=== PATIENT | male | born 1945 | race Caucasian/White ===

== ENCOUNTER 2021-01-24 16:30 | Inpatient (IN) | payer MEDICARE, OTHER ==
[~2021-01-24] VITALS: Ht 170.2 cm; Wt 85.7 kg
--- NOTE | 2021-01-24 16:42 | NUR ---
[id number] FROM CARE HOME C/O SOB X1WEEK, 96% ROOM AIR UPON ARRIVAL, GIVEN BREATHING TREATMENT CIVIL STRUCTURAL ENGINEER. THE PATIENT IS ALERT AND ORIENTED X3. DENIES PAIN. RESPIRATION REGULAR AND UNLABORED. ATTACHED TO THE MONITOR. WARM BLANKET PROVIDED FOR COMFORT. WILL CONTINUE TO MONITOR THE PATIENT.
--- NOTE | 2021-01-24 16:45 | NUR ---
LAB AT BEDSIDE FOR BLOOD DRAW
--- NOTE | 2021-01-24 16:45 | NUR ---
PHLEBATOMIST AT THE BEDSIDE
[2021-01-24 16:56] LABS: BASOPHILS % (AUTO) 0.8 % (0.0-2.0); EOSINOPHILS % (AUTO) 3.3 % (0.0-6.0); HEMATOCRIT 39 % (39-51); HEMOGLOBIN 13.3 g/dL (13.5-17.5); LYMPHOCYTES # (AUTO) 1.4 K/uL (0.8-4.8); LYMPHOCYTES % (AUTO) 26.3 % (20.0-44.0); MEAN CORPUSCULAR HGB CONC 34 g/dl (31.0-36.0); MEAN CORPUSCULAR VOLUME 93 fL (80-96); MONOCYTES # (AUTO) 0.6 K/uL (0.1-1.30); MONOCYTES % (AUTO) 11.6 % (2.0-12.0); NEUTROPHILS # (AUTO) 3.1 K/uL (1.8-8.9); PLATELET COUNT (AUTO) 119 K/uL (150-450); RED BLOOD CELL COUNT(AUTO) 4.24 MIL/uL (4.5-6.0); WHITE BLOOD COUNT (AUTO) 5.4 K/uL (4.3-11.0)
[2021-01-24] MEDS ORDERED: ASCO-352 PO (17:02)
[2021-01-24] MEDS ORDERED: LISI40TA13 PO (17:02)
[2021-01-24] MEDS ORDERED: ASPI-1169 PO (17:02)
[2021-01-24] MEDS ORDERED: FURO-144 PO (17:02)
[2021-01-24] MEDS ORDERED: POTA10TA PO (17:02)
[2021-01-24] MEDS ORDERED: QUET50TA PO (17:02)
[2021-01-24] MEDS ORDERED: APIX5TAB PO (17:02)
[2021-01-24] MEDS ORDERED: LAMO25TA10 PO (17:02)
[2021-01-24] MEDS ORDERED: FAMO20TA8 PO (17:02)
[2021-01-24] MEDS ORDERED: METO25TA20 PO (17:02)
[2021-01-24] MEDS ORDERED: HYDR-4077 PO (17:02)
[2021-01-24] MEDS ORDERED: QUET25TA PO (17:02)
[2021-01-24] MEDS ORDERED: ATOR40TA PO (17:02)
[2021-01-24] MEDS ORDERED: METH1TAB PO (17:02)
[2021-01-24] MEDS ORDERED: TAMS-12 PO (17:02)
--- NOTE | 2021-01-24 17:05 | NUR ---
MAKAYLA SPICER AT PT'S BEDSIDE
--- NOTE | 2021-01-24 17:39 | NUR ---
COVID ANTIGEN SWAB COLLECTED AND SENT TO LAB
[2021-01-24 17:44] LABS: ALANINE AMINOTRANSFERASE 43 U/L (12-78); ALBUMIN 3.7 g/dL (3.4-5.0); ALKALINE PHOSPHATASE 113 U/L (46-116); ASPARTATE AMINOTRANSFERASE 24 U/L (15-37); BILIRUBIN,DIRECT 0.3 mg/dL (0.0-0.2); BILIRUBIN,TOTAL 1.2 mg/dL (0.2-1.0); CALCIUM, SERUM 8.6 mg/dL (8.5-10.1); CHLORIDE 104 mmol/L (98-107); GLUCOSE 93 mg/dL (74-106); POTASSIUM 3.7 mmol/L (3.5-5.1); SODIUM SERUM 143 mmol/L (136-145); UREA NITROGEN, BLOOD 33 mg/dL (7-18)
--- NOTE | 2021-01-24 17:46 | NUR ---
URINE COLLECTED AND SENT TO THE LAB
[2021-01-24 17:49] LABS: CARBON DIOXIDE 27 mmol/L (21-32)
[2021-01-24 17:54] LABS: BILIRUBIN,URINE Negative (NEGATIVE); COLOR,URINE YELLOW (YELLOW); LEUKOCYTE ESTERASE ,URINE Negative (NEGATIVE); NITRITE, URINE Negative (NEGATIVE); PROTEIN,URINE Negative (NEGATIVE); UGLUCOSE Negative (NEGATIVE); UROBILINOGEN,URINE 0.2 EU/dL (0.2)
[2021-01-24] MEDS ORDERED: CEFTRIAXONE 1 G in IV D5W 50 ML IV ONE (18:00)
[2021-01-24] MEDS ORDERED: CEFTRIAXONE 1GM BAG (ER ONLY) 50 ML IV ONE (18:12)
[2021-01-24] MEDS: METOPROLOL TARTRATE 25 MG TABLET PO SCH (19:00)
[2021-01-24] MEDS ORDERED: METHENAMINE MANDELATE 1 GM TABLET PO SCH (19:00)
[2021-01-24] MEDS: hydrALAZINE HCL 50 MG TABLET PO SCH (19:00)
--- NOTE | 2021-01-24 19:21 | NUR ---
[phone] JONI (SISTER) [phone] NATHANAEL AMAYA (OTHER SISTER)
[2021-01-24] MEDS ORDERED: IV NS 0.9% 1,000 ML IV PRN (20:00)
[2021-01-24] MEDS ORDERED: methylPREDNISolone SOD SUCC 125 MG/2ML VIAL IV ONE (20:00)
[2021-01-24] MEDS ORDERED: MAGNESIUM HYDROXIDE 30 ML UDC PO PRN (20:00)
[2021-01-24] MEDS ORDERED: ACETAMINOPHEN 325 MG TABLET PO PRN (20:00)
[2021-01-24] MEDS ORDERED: MAG HYDROX/AL HYDROX/SIMETH 30 ML UDC PO PRN (20:00)
[2021-01-24] MEDS ORDERED: DEXTROSE 50%-WATER 50 ML DISP.SYRIN IV PRN (20:00)
[2021-01-24] MEDS ORDERED: ONDANSETRON HCL/PF 4 MG/2 ML VIAL IVP PRN (20:00)
--- NOTE | 2021-01-24 20:26 | NUR ---
REPORT GIVEN TO SOFYA HERNANDEZ FOR SAMARA
[2021-01-24] MEDS ORDERED: IPRATROPIUM NEB FS 0.5 MG/2.5 ML AMPUL.NEB NEB SCH (20:30)
[2021-01-24] MEDS ORDERED: ALBUTEROL HALF STRENGTH 1.25 MG/3 ML VIAL.NEB NEB SCH (20:30)
--- NOTE | 2021-01-24 21:03 | NUR ---
US AT BEDSIDE
--- NOTE | 2021-01-24 21:05 | NUR ---
PT SWABBED, SENT TO LAB.
[2021-01-24 21:40] VITALS: BP 108/67
--- NOTE | 2021-01-24 21:52 | NUR ---
PT TRANSFERED PER ACLS PROTOCOL
--- NOTE | 2021-01-24 22:00 | NUR ---
FINGER GRIP MACHINE OPERATOR NOTE RECIEVED PT FROM ER WITH THE DX OF HYPOXIC BY Jesus ESPANA NP. PT A/O X 2-3, NO DISTRESS OR DISCOMFORT NOTED. PT IS WITH PRODUCTIVE COUGH BUT UNABLE TO CLEAR HIS THROAT. ON 2L VIA N/C O2 SAT 99%. DENIES PAIN. SL RT WRIST #20 G INTACT AND PATENT. SKIN ASSESSMENT DONE. PICTURES TAKEN AND PLACE THEM IN THE CHART, ADMITTING ORDERS CHECKED AND CARRIED OUT. ALL NEEDS ATTENDED. CONTINUE TO MONITOR HER. VSS STABLE. ON TELE MONITOR SR.
[2021-01-24] MEDS: LamoTRIgine 25 MG TABLET PO SCH (22:18)
[2021-01-24] MEDS: APIXABAN 5 MG TABLET PO SCH (22:18)
[2021-01-24] MEDS: QUETIAPINE FUMARATE 25 MG TABLET PO SCH (22:18)
[2021-01-24] MEDS: GUAIFENESIN LA 600 MG TABLET.SA PO SCH (22:22)
[2021-01-24] MEDS: ALBUTEROL SULFATE INH 18 GM HFA.AER.AD IH SCH ×2 (22:23→23:30)
[2021-01-24] MEDS: IPRATROPIUM BROMIDE 14 GM INHALER (or 12.9 GM) IH SCH ×2 (22:23→23:30)
[2021-01-24] MEDS ORDERED: methylPREDNISolone SOD SUCC 125 MG/2ML VIAL ONE (22:24)
[2021-01-24] MEDS: BLOOD SUGAR DIAGNOSTIC 1 EACH STRIP IN SCH (22:25)
[2021-01-25 04:00] VITALS: BP 120/86
[2021-01-25] MEDS: methylPREDNISolone SOD SUCC 40 MG/ML VIAL IV SCH ×5 (04:07→21:25)
[2021-01-25] MEDS: IPRATROPIUM BROMIDE 14 GM INHALER (or 12.9 GM) IH SCH ×2 (04:08→19:30)
[2021-01-25] MEDS: ALBUTEROL SULFATE INH 18 GM HFA.AER.AD IH SCH ×2 (04:08→19:30)
[2021-01-25 06:49] LABS: BASOPHILS % (AUTO) 0.1 % (0.0-2.0); EOSINOPHILS % (AUTO) 0.3 % (0.0-6.0); HEMATOCRIT 37 % (39-51); HEMOGLOBIN 12.3 g/dL (13.5-17.5); LYMPHOCYTES # (AUTO) 0.6 K/uL (0.8-4.8); MEAN CORPUSCULAR HGB CONC 34 g/dl (31.0-36.0); MEAN CORPUSCULAR VOLUME 93 fL (80-96); MONOCYTES # (AUTO) 0.1 K/uL (0.1-1.30); MONOCYTES % (AUTO) 3.9 % (2.0-12.0); NEUTROPHILS # (AUTO) 2.8 K/uL (1.8-8.9); NEUTROPHILS % (AUTO) 77.7 % (43.0-81.0); PLATELET COUNT (AUTO) 97 K/uL (150-450); RED BLOOD CELL COUNT(AUTO) 3.93 MIL/uL (4.5-6.0); WHITE BLOOD COUNT (AUTO) 3.6 K/uL (4.3-11.0)
--- NOTE | 2021-01-25 07:30 | NUR ---
RN NOTE REPORT REC'D AT BEDSIDE. PT ASLEEP. AROUSABLE. OX3. NO SOB. DENIES PAIN. SR ON TELE MONITOR. NS @75 TO RIGHT WRIST INFUSING WELL. SAFETY MEASURES OBSERVED. WILL CONTINUE TO MONITOR.
[2021-01-25 07:44] LABS: CALCIUM, SERUM 8.2 mg/dL (8.5-10.1); CARBON DIOXIDE 28 mmol/L (21-32); CHLORIDE 105 mmol/L (98-107); CREATININE 1.9 mg/dL (0.6-1.3); GLUCOSE 112 mg/dL (74-106); PHOSPHORUS 4.9 mg/dL (2.5-4.9); POTASSIUM 4.2 mmol/L (3.5-5.1); SODIUM SERUM 142 mmol/L (136-145); UREA NITROGEN, BLOOD 35 mg/dL (7-18)
[2021-01-25 08:00] VITALS: BP 122/88
[2021-01-25 08:01] LABS: CHOLESTEROL 103 mg/dL (<200); HDL CHOLESTEROL 33 mg/dL (40-60); LDL 59 mg/dL (0-99); TRIGLYCERIDES 38 mg/dL (30-150)
[2021-01-25] MEDS ORDERED: LISINOPRIL (20MG) 20 MG TABLET PO SCH (09:00)
[2021-01-25] MEDS ORDERED: METHENAMINE MANDELATE 1 GM TABLET PO SCH (09:00)
[2021-01-25] MEDS ORDERED: POTASSIUM CHLORIDE 10 MEQ TABLET.SA PO SCH (09:00)
[2021-01-25] MEDS: METOPROLOL TARTRATE 25 MG TABLET PO SCH ×2 (09:00→17:00)
[2021-01-25] MEDS: hydrALAZINE HCL 50 MG TABLET PO SCH ×2 (09:00→17:00)
[2021-01-25] MEDS: BLOOD SUGAR DIAGNOSTIC 1 EACH STRIP IN SCH ×4 (09:12→21:35)
[2021-01-25] MEDS: FAMOTIDINE (20 MG) 20 MG TABLET PO SCH (09:15)
--- NOTE | 2021-01-25 09:15 | NUR ---
RN NOTE HELD ALL BP MEDS AT THIS TIME HR 58. NO S/SX REPORTED.
[2021-01-25] MEDS: LamoTRIgine 25 MG TABLET PO SCH ×2 (09:16→17:00)
[2021-01-25] MEDS: GUAIFENESIN LA 600 MG TABLET.SA PO SCH ×2 (09:16→21:25)
[2021-01-25] MEDS: ATORVASTATIN 40 MG TABLET PO SCH (09:16)
[2021-01-25] MEDS: ASCORBIC ACID 500 MG TABLET PO SCH (09:17)
[2021-01-25] MEDS: QUETIAPINE FUMARATE 25 MG TABLET PO SCH ×2 (09:18→21:25)
[2021-01-25] MEDS: ASPIRIN 81 MG TAB.CHEW PO SCH (09:19)
[2021-01-25] MEDS: TAMSULOSIN 0.4 MG CAP.SR.24H PO SCH (09:19)
[2021-01-25] MEDS: INSULIN REGULAR, HUMAN 100 UNIT/ML 3 ML VIAL SQ PRN ×4 (09:20→21:38)
[2021-01-25] MEDS: APIXABAN 5 MG TABLET PO SCH ×2 (09:21→17:01)
[2021-01-25 10:11] LABS: BAND % (MANUAL) 1 % (0.0-5.0); EOSINOPHILS % (MANUAL) 1 % (0-4); LYMPHOCYTES % (MANUAL) 19 % (16-48); MONOCYTES % (MANUAL) 2 % (0-11.0); NEUTROPHILS % (MANUAL) 77 (42-76)
[2021-01-25] MEDS: FUROSEMIDE 40 MG/4 ML VIAL IV SCH ×2 (11:50→15:00)
[2021-01-25 12:00] VITALS: BP 119/79
[2021-01-25 16:00] VITALS: BP 98/62
--- NOTE | 2021-01-25 16:19 | NUR ---
RN NOTE DVT POSITIVE LEFT LOWER EXTREMITY.
--- NOTE | 2021-01-25 16:25 | NUR ---
RN NOTE EL ROGERS MADE AWARE PATIENT POSITIVE FOR LEFT LOWER EXTREMITY DVT. NO NEW ORDERS
--- NOTE | 2021-01-25 17:58 | NUR ---
RN NOTE HELD BP MEDS AND LASIX AT THIS TIME D/T LOW BP. NO S/SX OF HYPOTENSION.
--- NOTE | 2021-01-25 18:30 | NUR ---
RN NOTE PT AWAKE. NO SOB. ON 2 LPM O2 SAT- 96%. NO C/O PAIN. HL TO RIGHT WRIST PATENT AND INTACT. SR ON THE MONITOR. MADE COMFORTABLE IN BED. NEEDS ATTENDED. SAFETY MEASURES OBSERVED. WILL ENDORSE CARE TO NOC RN
[2021-01-25 20:00] VITALS: BP 104/67
--- NOTE | 2021-01-25 20:00 | NUR ---
ASSIGNMENT EDITOR NOTE PT IN BED AWAKE. A/O X 3. NO SOB, NO DISTRESS OR DISCOMFORT NOTED. DENIES PAIN. ON TELE SR HR 61. ALL NEEDS ATTENDED. KEPT HIM DRY AND CLEAN. VSS. CONTINUE TO MONITOR HIM.
[2021-01-26] VITALS: BP 98/62
[2021-01-26] MEDS: ALBUTEROL SULFATE INH 18 GM HFA.AER.AD IH SCH ×7 (00:09→23:30)
[2021-01-26] MEDS: IPRATROPIUM BROMIDE 14 GM INHALER (or 12.9 GM) IH SCH ×7 (00:09→23:30)
[2021-01-26 04:00] VITALS: BP 128/79
[2021-01-26] MEDS: methylPREDNISolone SOD SUCC 40 MG/ML VIAL IV SCH ×3 (04:56→21:02)
--- NOTE | 2021-01-26 07:30 | NUR ---
SENIOR SALES ASSISTANT NOTES PT IN BED, ASLEEP, EASY TO AROUSE, ALERT AND VERBALLY RESPONSIVE, NO COMPLAINT OF PAIN, RESPIRATIONS NORMAL, CALL LIGHT WITHIN REACH, KEPT COMFORTABLE.
[2021-01-26 08:00] VITALS: BP 112/64
[2021-01-26 08:37] LABS: BASOPHILS % (AUTO) 0.2 % (0.0-2.0); HEMATOCRIT 36 % (39-51); HEMOGLOBIN 12.3 g/dL (13.5-17.5); LYMPHOCYTES # (AUTO) 0.5 K/uL (0.8-4.8); LYMPHOCYTES % (AUTO) 6.8 % (20.0-44.0); MEAN CORPUSCULAR HGB CONC 34 g/dl (31.0-36.0); MEAN CORPUSCULAR VOLUME 94 fL (80-96); MONOCYTES # (AUTO) 0.2 K/uL (0.1-1.30); MONOCYTES % (AUTO) 2.9 % (2.0-12.0); NEUTROPHILS # (AUTO) 7.1 K/uL (1.8-8.9); NEUTROPHILS % (AUTO) 90.1 % (43.0-81.0); PLATELET COUNT (AUTO) 104 K/uL (150-450); RED BLOOD CELL COUNT(AUTO) 3.87 MIL/uL (4.5-6.0); WHITE BLOOD COUNT (AUTO) 7.8 K/uL (4.3-11.0)
[2021-01-26] MEDS: METOPROLOL TARTRATE 25 MG TABLET PO SCH ×2 (09:00→17:19)
[2021-01-26] MEDS: hydrALAZINE HCL 50 MG TABLET PO SCH ×2 (09:00→17:19)
[2021-01-26] MEDS: ATORVASTATIN 40 MG TABLET PO SCH (09:04)
[2021-01-26] MEDS: ASCORBIC ACID 500 MG TABLET PO SCH (09:05)
[2021-01-26] MEDS: GUAIFENESIN LA 600 MG TABLET.SA PO SCH ×2 (09:05→21:02)
[2021-01-26] MEDS: APIXABAN 5 MG TABLET PO SCH (09:05)
[2021-01-26] MEDS: QUETIAPINE FUMARATE 25 MG TABLET PO SCH ×2 (09:05→21:46)
[2021-01-26] MEDS: LamoTRIgine 25 MG TABLET PO SCH ×2 (09:05→17:18)
[2021-01-26] MEDS: ASPIRIN 81 MG TAB.CHEW PO SCH (09:05)
[2021-01-26] MEDS: FAMOTIDINE (20 MG) 20 MG TABLET PO SCH (09:05)
[2021-01-26] MEDS: BLOOD SUGAR DIAGNOSTIC 1 EACH STRIP IN SCH ×4 (09:06→22:26)
[2021-01-26] MEDS: TAMSULOSIN 0.4 MG CAP.SR.24H PO SCH (09:06)
[2021-01-26 10:11] LABS: ALANINE AMINOTRANSFERASE 37 U/L (12-78); ALBUMIN 3.2 g/dL (3.4-5.0); ALKALINE PHOSPHATASE 91 U/L (46-116); ASPARTATE AMINOTRANSFERASE 18 U/L (15-37); BILIRUBIN,TOTAL 0.8 mg/dL (0.2-1.0); CALCIUM, SERUM 8.3 mg/dL (8.5-10.1); CARBON DIOXIDE 27 mmol/L (21-32); CHLORIDE 104 mmol/L (98-107); CREATININE 1.9 mg/dL (0.6-1.3); GLUCOSE 128 mg/dL (74-106); MAGNESIUM 2.3 mg/dL (1.8-2.4); PHOSPHORUS 4.1 mg/dL (2.5-4.9); POTASSIUM 3.9 mmol/L (3.5-5.1); SODIUM SERUM 142 mmol/L (136-145); TOTAL PROTEIN, SERUM 7.3 g/dL (6.4-8.2); UREA NITROGEN, BLOOD 42 mg/dL (7-18)
[2021-01-26 12:00] VITALS: BP 122/64
[2021-01-26] MEDS: INSULIN REGULAR, HUMAN 100 UNIT/ML 3 ML VIAL SQ PRN ×2 (12:19→22:27)
[2021-01-26 16:00] VITALS: BP 135/77
--- NOTE | 2021-01-26 19:17 | NUR ---
LEAD MACHINIST NOTES PT IN BED, RESTING, NO COMPLAINT OF PAIN OR ANY DISCOMFORT, REMAINS ALERT AND ORIENTED, NOT IN DISTRESS, NO SOB, ON O2 AT 2LPM VIA N/C, CALL LIGHT WITHIN REACH, PM CARE PROVIDED.
--- NOTE | 2021-01-26 19:35 | NUR ---
RN NOTES RECEIVED PT FOR CONTINUITY OF CARE. PATIENT A/OX2-3 IN NO S/SX OF ACUTE DISTRESS AT THIS TIME; CURRENTLY ON 2L OF 02 VIA NC; WITH 02 SAT >95% AT THIS TIME. WILL ENSURE SAFETY MEASURES WITHIN THE SHIFT. PATIENT BED ALARM IS ON. HEAD OF BED ELEVATED. BED IS LOCKED, IN LOWEST POSITION AND SIDE RAILS UP. CALL LIGHT WITHIN REACH OF THE PATIENT. APPLICABLE ISOLATION PRECAUTIONS IN PLACE. WILL CONTINUE TO MONITOR AND REASSESS FOR ANY CHANGES AND WILL CARRY OUT ANY ONGOING AND ACTIVE MD ORDER.
[2021-01-26 20:00] VITALS: BP 124/76
[2021-01-26] MEDS: ENOXAPARIN SODIUM 100 MG/ML DISP.SYRIN SQ SCH (21:04)
--- NOTE | 2021-01-26 21:15 | NUR ---
RN NOTES TRIED TO SECURE CONSENT FOR NM PULMONARY PERFUSION PT REFUSED AT THIS TIME. MEDICAL CODING AUDITOR MADE AWARE. WILL TRY AGAIN WITHIN THE SHIFT.
[2021-01-26] MEDS ORDERED: TAMSULOSIN 0.4 MG CAP.SR.24H PO SCH (23:30)
--- NOTE | 2021-01-27 00:05 | NUR ---
RN NOTES PT PUT ON NPO POST MIDNIGHT; TRIED AGAIN TO SECURE FOR CONSENT FOR NM PULMONARY PERFUSION PT STILL REFUSED AT THIS TIME. MEDICAL DIRECTOR MADE AWARE.
--- NOTE | 2021-01-27 00:05 | NUR ---
RN NOTES PT REFUSED V/S TO BE TAKEN. EXPLAINED RISK AND BENEFITS BUT PT STILL REFUSED. RN ACKNOWLEDGED. PROCESSING LEAD MADE AWARE. WILL CONTINUE TO ASSESS AND MONITOR THROUGHOUT THE SHIFT.
[2021-01-27] MEDS: ALBUTEROL SULFATE INH 18 GM HFA.AER.AD IH SCH ×5 (03:30→23:40)
[2021-01-27] MEDS: IPRATROPIUM BROMIDE 14 GM INHALER (or 12.9 GM) IH SCH ×5 (03:30→23:39)
[2021-01-27 04:00] VITALS: BP 141/78
[2021-01-27] MEDS: methylPREDNISolone SOD SUCC 40 MG/ML VIAL IV SCH ×2 (04:20→13:23)
--- NOTE | 2021-01-27 05:52 | NUR ---
RN NOTES RECEIVED CALL FROM LAB; SPOKE WITH CHARLY WHO IS VERIFYING WHAT MISCELLANEOUS ORDER DR. YORK WANTS TOGETHER WITH THE OTHER LAB WORK. NOTIFIED DR YORK AND CONFIRM SHE WANTS FOLIC ACID. ENDORSED INFO TO CHARLY. HE ACKNOWLEDGED MANAGER LIBRARY MADE AWARE.
--- NOTE | 2021-01-27 06:46 | NUR ---
RN CLOSING NOTE: PATIENT REMAINS IN ROOM IN NO SIGNS OF RESPIRATORY DISTRESS, PATIENT STILL ON 2L OF 02 VIA NC;TOLERATING WELL SATURATING @ >95% SP02. WILL ENDORSE TO AM SHIFT TO SECURE AND COMPLETE CONSENT FOR NM PULMONARY PERFUSION ( ALREADY IN THE CHART). SAFETY MEASURES IMPLEMENTED, BED IN LOWEST POSITION, LOCKED, SIDE RAILS UP, CALL LIGHT WITHIN REACH. ALL NEEDS AND ORDERS ADDRESSED DURING THE SHIFT. IV ACCESS MAINTAINED INTACT, SECURED AND FLUSHING WELL. ALL DUE MEDS GIVEN ORDERED & SCHEDULED ; PATIENT TOLERATED WELL. PATIENT KEPT CLEAN AND COMFORTABLE WITHIN THE SHIFT. PATIENT ENDORSED TO INCOMING SHIFT RN WITH STABLE VITAL SIGN AND FOR CONTINUITY OF CARE.
--- NOTE | 2021-01-27 07:30 | NUR ---
IT AUDITOR NOTES PT IN BED, ASLEEP, EASY TO AROUSE, ALERT AND VERBALLY RESPONSIVE, ORIENTED X 2-3, PERIODS OF CONFUSION AND FORGETFULNESS. SB HR 46, DENIES PAIN/DISCOMFORT, RT WRIST 20G FLUSHES WELL, SITE CLEAR. NPO FPR NM PULMONARY PERFUSION TEST [R/O PULM EMBOLISM] . SEE NURSING FLOWSHEET FOR SKIN ISSUES. CALL LIGHT WITHIN REACH, KEPT COMFORTABLE. BED LOW LOCKED, SR UP X 2. WILL CONTINUE TO MONITOR.
[2021-01-27 08:00] VITALS: BP 134/80
--- NOTE | 2021-01-27 08:00 | NUR ---
PER [facility] COVID NEGATIVE.
[2021-01-27 08:01] LABS: HEMATOCRIT 40 % (39-51); HEMOGLOBIN 13.4 g/dL (13.5-17.5); LYMPHOCYTES # (AUTO) 0.5 K/uL (0.8-4.8); LYMPHOCYTES % (AUTO) 6.3 % (20.0-44.0); MEAN CORPUSCULAR HGB CONC 34 g/dl (31.0-36.0); MEAN CORPUSCULAR VOLUME 94 fL (80-96); MONOCYTES # (AUTO) 0.3 K/uL (0.1-1.30); MONOCYTES % (AUTO) 3.4 % (2.0-12.0); NEUTROPHILS # (AUTO) 7.8 K/uL (1.8-8.9); NEUTROPHILS % (AUTO) 90.3 % (43.0-81.0); PLATELET COUNT (AUTO) 121 K/uL (150-450); RED BLOOD CELL COUNT(AUTO) 4.23 MIL/uL (4.5-6.0); WHITE BLOOD COUNT (AUTO) 8.7 K/uL (4.3-11.0)
[2021-01-27] MEDS: BLOOD SUGAR DIAGNOSTIC 1 EACH STRIP IN SCH ×4 (08:06→22:51)
[2021-01-27 08:16] LABS: ALANINE AMINOTRANSFERASE 37 U/L (12-78); ALBUMIN 3.4 g/dL (3.4-5.0); ALKALINE PHOSPHATASE 95 U/L (46-116); ASPARTATE AMINOTRANSFERASE 22 U/L (15-37); BILIRUBIN,TOTAL 0.9 mg/dL (0.2-1.0); CALCIUM, SERUM 8.6 mg/dL (8.5-10.1); CARBON DIOXIDE 30 mmol/L (21-32); CHLORIDE 106 mmol/L (98-107); CREATININE 1.8 mg/dL (0.6-1.3); GLUCOSE 111 mg/dL (74-106); POTASSIUM 3.7 mmol/L (3.5-5.1); SODIUM SERUM 146 mmol/L (136-145); TOTAL PROTEIN, SERUM 7.8 g/dL (6.4-8.2); UREA NITROGEN, BLOOD 43 mg/dL (7-18)
[2021-01-27 08:17] LABS: IRON, SERUM 70 ug/dl (50-175); TOTAL IRON BINDING CAPACITY 243 ug/dl (250-450)
[2021-01-27 09:31] LABS: C-REACTIVE PROTEIN < 0.2 mg/dL (0.0-0.9)
--- NOTE | 2021-01-27 09:45 | NUR ---
RN NOTES RECEIVED A CALL FROM SISTER Heidy BEST. PHONE NUMBER [phone] Addendum: 01/27/21 at 1157 by JOSE LIRA RN ADDENDUM: NOTIFIED THAT EARLIER AND PER INTERNAL WHOLESALER, THEY WERE TRYING TO CALL FOR CONSENT FOR PROCEDURE BUT NO UNABLE DUE TO NO ANSWER.
--- NOTE | 2021-01-27 10:20 | NUR ---
RN NOTES PT BACK FROM NM PULM TEST. DUE MEDS AT 0900 GIVEN.
[2021-01-27] MEDS: ATORVASTATIN 40 MG TABLET PO SCH (10:28)
[2021-01-27] MEDS: ASPIRIN 81 MG TAB.CHEW PO SCH (10:28)
[2021-01-27] MEDS: GUAIFENESIN LA 600 MG TABLET.SA PO SCH ×2 (10:29→21:44)
[2021-01-27] MEDS: FAMOTIDINE (20 MG) 20 MG TABLET PO SCH (10:29)
[2021-01-27] MEDS: ASCORBIC ACID 500 MG TABLET PO SCH (10:29)
[2021-01-27] MEDS: LamoTRIgine 25 MG TABLET PO SCH ×2 (10:29→17:18)
[2021-01-27] MEDS: QUETIAPINE FUMARATE 25 MG TABLET PO SCH ×2 (10:29→21:45)
[2021-01-27] MEDS: TAMSULOSIN 0.4 MG CAP.SR.24H PO SCH ×2 (10:29→21:45)
[2021-01-27] MEDS: hydrALAZINE HCL 50 MG TABLET PO SCH ×2 (10:30→17:19)
[2021-01-27] MEDS: ENOXAPARIN SODIUM 100 MG/ML DISP.SYRIN SQ SCH ×2 (10:32→22:01)
[2021-01-27] MEDS: METOPROLOL TARTRATE 25 MG TABLET PO SCH ×2 (10:33→17:19)
--- NOTE | 2021-01-27 10:45 | NUR ---
NM : LUNG V/Q WAS COMPLETED. TECH:RB
--- NOTE | 2021-01-27 11:57 | NUR ---
RN NOTES PATIENT TRANSFERRED TO ROOM 326-1. REPORT GIVEN TO CORETTA HERNANDEZ FOR SAMARA
[2021-01-27 12:00] VITALS: BP 111/67
--- NOTE | 2021-01-27 12:00 | NUR ---
MS RN NOTE RECEIVED PT FROM [facility] VIA BED, AWAKE, A/O X2-3. NO SIGNS OF ACUTE DISTRESS. ON ROOM AIR, NO SOB NOTED, BREATHING EVEN AND UNLABORED. IV ACCESS ON RIGHT WRIST #20G ON SALINE LOCK, PATENT AND INTACT. DENIES ANY PAIN OR DISCOMFORT AT THIS TIME. SAFETY MEASURES IN PLACE. BED LOCKED AND IN LOWEST POSITION, SIDE RAILS UP X2, CALL LIGHT PLACED WITHIN EASY REACH, WILL CONTINUE TO MONITOR PATIENT.
[2021-01-27 12:30] LABS: FERRITIN 62 ng/mL (8-388); THYROID STIMULATING HORMONE 0.753 uIU/mL (0.358-3.74)
[2021-01-27 13:00] VITALS: BP 111/67
[2021-01-27 16:00] VITALS: BP 120/60
--- NOTE | 2021-01-27 16:00 | NUR ---
MS RN NOTE SEEN BY DR. MUHAMMAD. MD NOTIFIED OF URINARY RETENTION WITH ORDERS MADE AND CARRIED OUT. WILL CONTINUE TO MONITOR PATIENT.
--- NOTE | 2021-01-27 17:30 | NUR ---
MS RN NOTE SEEN BY DR. YORK AND SHE SPOKE WITH DPOA. WILL CONTINUE TO MONITOR PATIENT.
--- NOTE | 2021-01-27 19:00 | NUR ---
MS RN CLOSING NOTE PT VIA BED, AWAKE, A/O X2-3. NO SIGNS OF ACUTE DISTRESS. ON ROOM AIR, NO SOB NOTED, BREATHING EVEN AND UNLABORED. IV ACCESS ON RIGHT WRIST #20G ON SALINE LOCK, PATENT AND INTACT. DENIES ANY PAIN OR DISCOMFORT AT THIS TIME. SAFETY MEASURES IN PLACE. BED LOCKED AND IN LOWEST POSITION, SIDE RAILS UP X2, CALL LIGHT PLACED WITHIN EASY REACH, WILL ENDORSE PATIENT FOR CONTINUITY OF CARE.
[2021-01-27 20:18] VITALS: BP 110/66
[2021-01-27] MEDS: INSULIN REGULAR, HUMAN 100 UNIT/ML 3 ML VIAL SQ PRN (22:52)
[2021-01-28] MEDS: IPRATROPIUM BROMIDE 14 GM INHALER (or 12.9 GM) IH SCH ×3 (00:31→23:35)
[2021-01-28] MEDS: ALBUTEROL SULFATE INH 18 GM HFA.AER.AD IH SCH ×3 (00:31→23:35)
--- NOTE | 2021-01-28 07:30 | NUR ---
MS RN OPENING NOTES RECEIVED PT RESTING IN BED, AWAKE, A/O X3, VERBALLY RESPONSIVE. ONROOM AIR, NO SOB NOTED, BREATHING EVEN AND UNLABORED, NO SIGNS OF ACUTE DISTRESS. WITH IV ACCESS ON RIGHT WRIST #20G SL, INTACT AND PATENT. NO C/O PAIN AT THIS TIME. SAFETY MEASURES PROVIDED. BED LOCKED AND IN LOWEST POSITION, SR UP X2, CALL LIGHT PLACED WITHIN EASY REACH. WILL CONTINUE TO MONITOR.
[2021-01-28] MEDS: BLOOD SUGAR DIAGNOSTIC 1 EACH STRIP IN SCH ×4 (07:46→21:31)
[2021-01-28] MEDS: INSULIN REGULAR, HUMAN 100 UNIT/ML 3 ML VIAL SQ PRN (07:47)
[2021-01-28 08:06] LABS: IMMUNOGLOBULIN A, SERUM 33 mg/dL (61-437); IMMUNOGLOBULIN G, SERUM 2218 mg/dL (603-1613); IMMUNOGLOBULIN M, SERUM 29 mg/dL (15-143)
[2021-01-28 08:15] LABS: CALCIUM, SERUM 8.3 mg/dL (8.5-10.1); CARBON DIOXIDE 29 mmol/L (21-32); CHLORIDE 108 mmol/L (98-107); CREATININE 1.6 mg/dL (0.6-1.3); GLUCOSE 85 mg/dL (74-106); POTASSIUM 3.8 mmol/L (3.5-5.1); SODIUM SERUM 145 mmol/L (136-145); UREA NITROGEN, BLOOD 40 mg/dL (7-18)
[2021-01-28 08:48] LABS: BASOPHILS % (AUTO) 0.1 % (0.0-2.0); HEMATOCRIT 36 % (39-51); HEMOGLOBIN 12.2 g/dL (13.5-17.5); LYMPHOCYTES # (AUTO) 0.8 K/uL (0.8-4.8); LYMPHOCYTES % (AUTO) 12.6 % (20.0-44.0); MEAN CORPUSCULAR HGB CONC 34 g/dl (31.0-36.0); MEAN CORPUSCULAR VOLUME 94 fL (80-96); MONOCYTES # (AUTO) 0.6 K/uL (0.1-1.30); MONOCYTES % (AUTO) 8.8 % (2.0-12.0); NEUTROPHILS # (AUTO) 5.1 K/uL (1.8-8.9); NEUTROPHILS % (AUTO) 78.5 % (43.0-81.0); PLATELET COUNT (AUTO) 102 K/uL (150-450); RED BLOOD CELL COUNT(AUTO) 3.87 MIL/uL (4.5-6.0); WHITE BLOOD COUNT (AUTO) 6.4 K/uL (4.3-11.0)
[2021-01-28] MEDS: hydrALAZINE HCL 50 MG TABLET PO SCH ×2 (09:00→16:30)
[2021-01-28] MEDS: METOPROLOL TARTRATE 25 MG TABLET PO SCH ×2 (09:00→16:29)
[2021-01-28] MEDS ORDERED: TAMSULOSIN 0.4 MG CAP.SR.24H PO SCH (09:00)
[2021-01-28] MEDS: GUAIFENESIN LA 600 MG TABLET.SA PO SCH ×2 (09:03→21:30)
[2021-01-28] MEDS: ASCORBIC ACID 500 MG TABLET PO SCH (09:04)
[2021-01-28] MEDS: ENOXAPARIN SODIUM 100 MG/ML DISP.SYRIN SQ SCH (09:05)
[2021-01-28] MEDS: methylPREDNISolone SOD SUCC 40 MG/ML VIAL IV SCH (09:05)
[2021-01-28] MEDS: LamoTRIgine 25 MG TABLET PO SCH ×2 (09:05→16:27)
[2021-01-28] MEDS: ATORVASTATIN 40 MG TABLET PO SCH (09:06)
[2021-01-28] MEDS: QUETIAPINE FUMARATE 25 MG TABLET PO SCH ×2 (09:06→21:30)
[2021-01-28] MEDS: FAMOTIDINE (20 MG) 20 MG TABLET PO SCH (09:06)
[2021-01-28] MEDS: ASPIRIN 81 MG TAB.CHEW PO SCH (09:06)
[2021-01-28 10:15] VITALS: BP 101/58
--- NOTE | 2021-01-28 19:00 | NUR ---
MS RN CLOSING NOTES RECEIVED PT RESTING IN BED, AWAKE, A/O X3, VERBALLY RESPONSIVE. ON ROOM AIR, NO SOB NOTED, BREATHING EVEN AND UNLABORED, NO SIGNS OF ACUTE DISTRESS. WITH IV ACCESS ON RIGHT WRIST #20G SL, INTACT AND PATENT. NO C/O PAIN AT THIS TIME. PT REFUSED F/C INSERTION INSPITE EXPLANATION OF RISKS AND BENEFITS. DENIES ANY BLADDER DISCOMFORT. PT ABLE TO VOID. SAFETY MEASURES PROVIDED. BED LOCKED AND IN LOWEST POSITION, SR UP X2, CALL LIGHT PLACED WITHIN EASY REACH. WILL ENDORSE TO NEXT SHIFT.
--- NOTE | 2021-01-28 19:40 | NUR ---
MS/RN OPENING NOTE RECEIVED PATIENT RESTING IN BED. AWAKE, ALERT AND ORIENTED X 3. ABLE TO MAKE NEEDS KNOWN. DENIES PAIN AT THIS TIME. CONTINUES ON ROOM AIR WITH NO S/SX OF RESPIRATORY DISTRESS NOTED. IV ACCESS TO RIGHT WRIST #20G INTACT, PATENT AND SALINE LOCKED. CALL LIGHT WITHIN REACH. ASPIRATION, FALL AND SAFETY PRECAUTIONS MAINTAINED. WILL CONTINUE TO MONITOR.
[2021-01-28 20:00] VITALS: BP 125/78
[2021-01-28] MEDS: ATORVASTATIN 10 MG TABLET PO SCH (21:30)
[2021-01-28] MEDS: TAMSULOSIN 0.4 MG CAP.SR.24H PO SCH (21:31)
[2021-01-29] MEDS: ALBUTEROL SULFATE INH 18 GM HFA.AER.AD IH SCH ×6 (04:25→23:30)
[2021-01-29] MEDS: IPRATROPIUM BROMIDE 14 GM INHALER (or 12.9 GM) IH SCH ×5 (04:25→23:30)
--- NOTE | 2021-01-29 06:40 | NUR ---
MS/RN CLOSING NOTE PATIENT CURRENTLY RESTING IN BED. AWAKE, ALERT AND ORIENTED X 3. ABLE TO MAKE NEEDS KNOWN. DENIES PAIN AT THIS TIME. CONTINUES ON ROOM AIR WITH NO S/SX OF RESPIRATORY DISTRESS NOTED. IV ACCESS TO RIGHT WRIST #20G INTACT, PATENT AND SALINE LOCKED. BLOOD GLUCOSE 73 THIS AM. GIVEN ORANGE JUICE. CALL LIGHT WITHIN REACH. ASPIRATION, FALL AND SAFETY PRECAUTIONS MAINTAINED. WILL ENDORSE PLAN OF CARE TO ONCOMING SHIFT.
[2021-01-29] MEDS: BLOOD SUGAR DIAGNOSTIC 1 EACH STRIP IN SCH (06:56)
[2021-01-29 07:29] LABS: BASOPHILS % (AUTO) 0.1 % (0.0-2.0); EOSINOPHILS % (AUTO) 0.5 % (0.0-6.0); HEMATOCRIT 38 % (39-51); HEMOGLOBIN 12.6 g/dL (13.5-17.5); LYMPHOCYTES # (AUTO) 1.2 K/uL (0.8-4.8); LYMPHOCYTES % (AUTO) 22.2 % (20.0-44.0); MEAN CORPUSCULAR HGB CONC 34 g/dl (31.0-36.0); MEAN CORPUSCULAR VOLUME 93 fL (80-96); MONOCYTES # (AUTO) 0.6 K/uL (0.1-1.30); MONOCYTES % (AUTO) 11.5 % (2.0-12.0); NEUTROPHILS # (AUTO) 3.6 K/uL (1.8-8.9); NEUTROPHILS % (AUTO) 65.7 % (43.0-81.0); PLATELET COUNT (AUTO) 96 K/uL (150-450); RED BLOOD CELL COUNT(AUTO) 4.04 MIL/uL (4.5-6.0); WHITE BLOOD COUNT (AUTO) 5.4 K/uL (4.3-11.0)
--- NOTE | 2021-01-29 07:30 | NUR ---
MS RN OPENING NOTES RECEIVED PATIENT RESTING IN BED. AWAKE, ALERT AND ORIENTED X 3. ABLE TO MAKE NEEDS KNOWN. DENIES PAIN AT THIS TIME. CONTINUES ON ROOM AIR WITH NO S/SX OF RESPIRATORY DISTRESS NOTED. IV ACCESS TO RIGHT WRIST #20G INTACT, PATENT AND SALINE LOCKED. CALL LIGHT WITHIN REACH. ASPIRATION, FALL AND SAFETY PRECAUTIONS MAINTAINED. WILL CONTINUE TO MONITOR ACCORDINGLY.
[2021-01-29 08:00] VITALS: BP 117/69
[2021-01-29] MEDS: ASCORBIC ACID 500 MG TABLET PO SCH (08:40)
[2021-01-29] MEDS: FAMOTIDINE (20 MG) 20 MG TABLET PO SCH (08:40)
[2021-01-29] MEDS: QUETIAPINE FUMARATE 25 MG TABLET PO SCH ×2 (08:40→21:48)
[2021-01-29] MEDS: ASPIRIN 81 MG TAB.CHEW PO SCH (08:40)
[2021-01-29] MEDS: GUAIFENESIN LA 600 MG TABLET.SA PO SCH ×2 (08:40→21:47)
[2021-01-29] MEDS: LamoTRIgine 25 MG TABLET PO SCH ×2 (08:40→16:42)
[2021-01-29] MEDS: METOPROLOL TARTRATE 25 MG TABLET PO SCH ×2 (08:41→21:00)
[2021-01-29] MEDS: hydrALAZINE HCL 50 MG TABLET PO SCH ×2 (08:41→16:43)
[2021-01-29 10:06] LABS: *ANA ANTI-CENTROMERE B AB <0.2 AI (0.0-0.9); *ANA ANTI-DNA(DS) AB, QN <1 IU/mL (0-9); *ANA ANTI-JO-1 <0.2 AI (0.0-0.9); *ANA ANTICHROMATIN ANTIBODY <0.2 AI (0.0-0.9); *ANA RNP ANTIBODIES <0.2 AI (0.0-0.9); *ANA SJOGREN'S ANTI-SS-A <0.2 AI (0.0-0.9); *ANA SJOGREN'S ANTI-SS-B <0.2 AI (0.0-0.9); *ANAANTI-SCLERODERMA-70 AB <0.2 AI (0.0-0.9); *ANASMITH AB <0.2 AI (0.0-0.9)
[2021-01-29] MEDS: ENOXAPARIN SODIUM 30 MG/0.3 ML DISP.SYRIN SQ SCH (12:37)
[2021-01-29 14:56] LABS: CALCIUM, SERUM 8.9 mg/dL (8.5-10.1)
[2021-01-29 16:00] VITALS: BP 117/78
--- NOTE | 2021-01-29 18:40 | NUR ---
MS RN OPENING NOTES PATIENT RESTING IN BED. AWAKE, ALERT AND ORIENTED X 3. ABLE TO MAKE NEEDS KNOWN. DENIES PAIN AT THIS TIME. CONTINUES ON ROOM AIR WITH NO S/SX OF RESPIRATORY DISTRESS NOTED. IV ACCESS TO RIGHT WRIST #20G INTACT, PATENT AND SALINE LOCKED. CALL LIGHT WITHIN REACH. ASPIRATION, FALL AND SAFETY PRECAUTIONS MAINTAINED. ALL NEEDS ATTENDED AND MET. DUE MEDS GIVEN ORDERED. WILL ENDORSE TO ONCOMING SHIFT FOR SAMARA.
--- NOTE | 2021-01-29 19:48 | NUR ---
MS RN OPENING NOTES: RECEIVED PATIENT AWAKE IN BED BED, IN LOW POSITION, CALL LIGHTS WITHIN REACH, NO COMPLAIN OF PAIN AND DISCOMFORT AT THIS TIME, PATIENT IS A/O X3 ON BED REST ABLE TO MAKE NEEDS KNOWN WITH IV LINE AT R WIDT #20SL, PATIENT ON RM AIR SATURATING WELL, PATIENT KEPT CLEAN AND DRY ALL NEEDS MET, WILL CONTINUE TO MONITOR.
[2021-01-29 21:04] LABS: CARBON DIOXIDE 26 mmol/L (21-32); CHLORIDE 109 mmol/L (98-107); CREATININE 1.5 mg/dL (0.6-1.3); GLUCOSE 73 mg/dL (74-106); POTASSIUM 3.7 mmol/L (3.5-5.1); SODIUM SERUM 148 mmol/L (136-145); UREA NITROGEN, BLOOD 35 mg/dL (7-18)
[2021-01-29] MEDS: TAMSULOSIN 0.4 MG CAP.SR.24H PO SCH (21:48)
[2021-01-29] MEDS: ATORVASTATIN 10 MG TABLET PO SCH (21:48)
--- NOTE | 2021-01-29 21:52 | NUR ---
RN NOTES: BLOOD PRESSURE- 129/80 PULSE-52, BP MEDS AT 2100 METAPROLOL 25MG Q12H NOT GIVEN DUE TO LOW HEART RATE AT 52
[2021-01-29 22:01] VITALS: BP 129/80
[2021-01-30] MEDS: IPRATROPIUM BROMIDE 14 GM INHALER (or 12.9 GM) IH SCH ×7 (03:30→23:49)
[2021-01-30] MEDS: ALBUTEROL SULFATE INH 18 GM HFA.AER.AD IH SCH ×6 (03:30→23:49)
--- NOTE | 2021-01-30 06:43 | NUR ---
RN NOTES: PATIENT SLEEP IN BED COMFORTABLY, AROUSABLE TO VERBAL STIMULI, BED IN LOW POSITION, CALL LIGHTS WITHIN REACH, NO COMPLAIN OF PAIN AND DISCOMFORT AT THIS TIME WITH RT WRIST #20 SL, ON ROOM AIR NO SOB OBSERVED, PATIENT WAS A/O X3 ABLE TO MAKE NEEDS KNOWN, KEPT CLEAN AND DRY ALL NEEDS MET WILL ENDORSE TO INCOMING SHIFT.
[2021-01-30 08:00] VITALS: BP 137/77
[2021-01-30] MEDS: FAMOTIDINE (20 MG) 20 MG TABLET PO SCH (08:17)
[2021-01-30] MEDS: LamoTRIgine 25 MG TABLET PO SCH ×2 (08:17→16:48)
[2021-01-30] MEDS: GUAIFENESIN LA 600 MG TABLET.SA PO SCH ×2 (08:17→21:31)
[2021-01-30] MEDS: FINASTERIDE (5 MG) 5 MG TABLET PO SCH (08:17)
[2021-01-30] MEDS: QUETIAPINE FUMARATE 25 MG TABLET PO SCH ×2 (08:17→21:33)
[2021-01-30] MEDS: ASPIRIN 81 MG TAB.CHEW PO SCH (08:17)
[2021-01-30] MEDS: ASCORBIC ACID 500 MG TABLET PO SCH (08:17)
[2021-01-30] MEDS: hydrALAZINE HCL 50 MG TABLET PO SCH ×2 (08:18→16:48)
[2021-01-30] MEDS: METOPROLOL TARTRATE 25 MG TABLET PO SCH ×2 (08:18→21:32)
[2021-01-30 08:45] LABS: BASOPHILS % (AUTO) 0.2 % (0.0-2.0); EOSINOPHILS % (AUTO) 3.5 % (0.0-6.0); HEMATOCRIT 41 % (39-51); HEMOGLOBIN 13.6 g/dL (13.5-17.5); LYMPHOCYTES # (AUTO) 1.1 K/uL (0.8-4.8); LYMPHOCYTES % (AUTO) 22.4 % (20.0-44.0); MEAN CORPUSCULAR HGB CONC 34 g/dl (31.0-36.0); MEAN CORPUSCULAR VOLUME 94 fL (80-96); MONOCYTES # (AUTO) 0.4 K/uL (0.1-1.30); MONOCYTES % (AUTO) 9.5 % (2.0-12.0); NEUTROPHILS # (AUTO) 3.1 K/uL (1.8-8.9); NEUTROPHILS % (AUTO) 64.4 % (43.0-81.0); PLATELET COUNT (AUTO) 92 K/uL (150-450); RED BLOOD CELL COUNT(AUTO) 4.33 MIL/uL (4.5-6.0); WHITE BLOOD COUNT (AUTO) 4.7 K/uL (4.3-11.0)
[2021-01-30 09:01] LABS: CALCIUM, SERUM 8.5 mg/dL (8.5-10.1); CARBON DIOXIDE 30 mmol/L (21-32); CHLORIDE 105 mmol/L (98-107); CREATININE 1.4 mg/dL (0.6-1.3); GLUCOSE 71 mg/dL (74-106); POTASSIUM 3.8 mmol/L (3.5-5.1); SODIUM SERUM 144 mmol/L (136-145); UREA NITROGEN, BLOOD 28 mg/dL (7-18)
--- NOTE | 2021-01-30 09:54 | NUR ---
RN NOTES INFORMED DR. PARISI OF PATIENT'S BLOOD CULTURE PRELIMINARY RESULT OR GRAM POSITIVE COCCI IN CLUSTER.
[2021-01-30] MEDS: ENOXAPARIN SODIUM 30 MG/0.3 ML DISP.SYRIN SQ SCH (12:10)
[2021-01-30] MEDS ORDERED: POLYVINYL ALCOHOL 15 ML BOTTLE EACHEYE PRN (13:00)
[2021-01-30] MEDS ORDERED: VANCOMYCIN 1 GM in IV D5W 250 ML IV ONE (14:00)
[2021-01-30 16:00] VITALS: BP_SYST 111; BP_SYST 116; BP_DIAS 66
--- NOTE | 2021-01-30 18:27 | NUR ---
MS RN CLOSING NOTES PATIENT RESTING IN BED. AWAKE, ALERT AND ORIENTED X 3. ABLE TO MAKE NEEDS KNOWN. DENIES PAIN AT THIS TIME. CONTINUES ON ROOM AIR WITH NO S/SX OF RESPIRATORY DISTRESS NOTED. IV ACCESS TO RIGHT WRIST #20G INTACT, PATENT AND SALINE LOCKED. CALL LIGHT WITHIN REACH. ASPIRATION, FALL AND SAFETY PRECAUTIONS MAINTAINED. ALL NEEDS ATTENDED AND MET. DUE MEDS GIVEN ORDERED. WILL ENDORSE TO ONCOMING SHIFT FOR SAMARA.
[2021-01-30 20:00] VITALS: BP 119/73
--- NOTE | 2021-01-30 20:08 | NUR ---
MS RN OPENING NOTES: RECEIVED PATIENT AWAKE IN BED, BED IN LOW POSITION, CALL LIGHTS WITHIN REACH, NO COMPLAIN OF PAIN AND DISCOMFORT A THIS TIME ON RA SATURATING WELL, PATIENT WITH MI MIDLINE#18 WITH ONGOING NSS@75ML PER HOUR INFUSING WELL, PATIENT KEPT CLEAN AND DRY, ALL NEEDS MET WILL CONTINUE TO MONITOR.
[2021-01-30] MEDS: ATORVASTATIN 10 MG TABLET PO SCH (21:32)
[2021-01-30] MEDS: TAMSULOSIN 0.4 MG CAP.SR.24H PO SCH (21:32)
[2021-01-30 23:54] VITALS: BP 119/73
[2021-01-31] MEDS ORDERED: VANCOMYCIN 0.75 GM in IV D5W 250 ML IV SCH (02:00)
[2021-01-31] MEDS: IPRATROPIUM BROMIDE 14 GM INHALER (or 12.9 GM) IH SCH ×4 (03:42→15:30)
[2021-01-31] MEDS: ALBUTEROL SULFATE INH 18 GM HFA.AER.AD IH SCH ×4 (03:42→15:30)
[2021-01-31 06:44] LABS: BASOPHILS % (AUTO) 0.2 % (0.0-2.0); HEMATOCRIT 38 % (39-51); LYMPHOCYTES # (AUTO) 1.1 K/uL (0.8-4.8); LYMPHOCYTES % (AUTO) 20.6 % (20.0-44.0); MEAN CORPUSCULAR HGB CONC 34 g/dl (31.0-36.0); MEAN CORPUSCULAR VOLUME 94 fL (80-96); MONOCYTES # (AUTO) 0.5 K/uL (0.1-1.30); MONOCYTES % (AUTO) 10.3 % (2.0-12.0); NEUTROPHILS # (AUTO) 3.4 K/uL (1.8-8.9); NEUTROPHILS % (AUTO) 63.9 % (43.0-81.0); PLATELET COUNT (AUTO) 89 K/uL (150-450); RED BLOOD CELL COUNT(AUTO) 4.07 MIL/uL (4.5-6.0); WHITE BLOOD COUNT (AUTO) 5.2 K/uL (4.3-11.0)
--- NOTE | 2021-01-31 08:02 | NUR ---
RN CLOSING NOTES- PATIENT SLEEP IN BED COMFORTABLY, BED IN LOW POSITION, CALL LIGHTS WITHIN REACH, NO COMPLAIN OF PAIN AND DISCOMFORT AT THIS TIME, PATIENT A/O X3 ABLE TO EXPRESS NEEDS ON ROOM AIR NO RESP DISTRESS WAS OBSERVED, WITH IV LINE AT RIGHT WRIST#20 SL, PATIENT KEPT CLEAN AND DRY, ALL NEEDS MET, ENDORSE TO INCOMING SHIFT.
[2021-01-31 08:15] VITALS: BP 109/70
[2021-01-31 08:32] LABS: ALBUMIN 2.8 g/dL (3.4-5.0); BILIRUBIN,TOTAL 0.9 mg/dL (0.2-1.0); CALCIUM, SERUM 7.9 mg/dL (8.5-10.1); CREATININE 1.3 mg/dL (0.6-1.3); MAGNESIUM 2.6 mg/dL (1.8-2.4); PHOSPHORUS 3.4 mg/dL (2.5-4.9); POTASSIUM 3.4 mmol/L (3.5-5.1); TOTAL PROTEIN, SERUM 6.5 g/dL (6.4-8.2)
[2021-01-31] MEDS: FINASTERIDE (5 MG) 5 MG TABLET PO SCH (08:59)
[2021-01-31] MEDS: ASCORBIC ACID 500 MG TABLET PO SCH (08:59)
[2021-01-31] MEDS: QUETIAPINE FUMARATE 25 MG TABLET PO SCH ×2 (08:59→22:25)
[2021-01-31] MEDS: LamoTRIgine 25 MG TABLET PO SCH ×2 (08:59→18:14)
[2021-01-31] MEDS: ASPIRIN 81 MG TAB.CHEW PO SCH (08:59)
[2021-01-31] MEDS: FAMOTIDINE (20 MG) 20 MG TABLET PO SCH (08:59)
[2021-01-31] MEDS: hydrALAZINE HCL 50 MG TABLET PO SCH ×2 (09:00→18:15)
[2021-01-31] MEDS: METOPROLOL TARTRATE 25 MG TABLET PO SCH ×2 (09:00→21:26)
[2021-01-31] MEDS: GUAIFENESIN LA 600 MG TABLET.SA PO SCH ×2 (09:23→21:27)
--- NOTE | 2021-01-31 10:24 | NUR ---
PT RECEIVED RESTING COMFORTABLY IN BED WITH EYES CLOSED. NO S/S OR C/O PAIN OR DISTRESS NOTED. SIDE RAILS UP X2, CALL LIGHT LEFT WITHIN REACH. WILL CONTINUE PLAN OF CARE.
[2021-01-31] MEDS ORDERED: POTASSIUM CHLORIDE 20 MEQ TAB.PRT.SR PO SCH (11:00)
[2021-01-31] MEDS: ENOXAPARIN SODIUM 30 MG/0.3 ML DISP.SYRIN SQ SCH (13:33)
[2021-01-31 14:06] LABS: *SPE A/G RATIO 0.7 (0.7-1.7); *SPE ALPHA-1-GLOBULIN 0.3 g/dL (0.0-0.4); *SPE BETA GLOBULIN 0.9 g/dL (0.7-1.3); *SPE M-SPIKE 1.8 g/dL (Not Observed)
[2021-01-31 15:55] VITALS: BP 128/83
--- NOTE | 2021-01-31 19:27 | NUR ---
CHANGE OF SHIFT REPORT PT RESTING COMFORTABLY IN BED. NO S/S OR C/O PAIN OR DISTRESS NOTED. SIDE RAILS UP X2, CALL LIGHT LEFT WITHIN REACH. PT KEPT CLEAN, DRY, AND COMFORTABLE. NO SIGNIFICANT CHANGES SINCE PREVIOUS SHIFT. WILL GIVE REPORT TO BIMAL HERNANDEZ.
[2021-01-31 20:00] VITALS: BP 131/87
--- NOTE | 2021-01-31 20:06 | NUR ---
MS RN OPENING NOTE RECEIVED PATIENT. IN BED. A/OX3-4. NO S/S OF APPARENT DISTRESS. NO C/O PAIN. NO FLUIDS RUNNING AT THIS TIME. SAFETY IN PLACE. WILL CONTINUE WITH PLAN OF CARE.
[2021-01-31] MEDS: ATORVASTATIN 10 MG TABLET PO SCH (22:25)
[2021-01-31] MEDS: TAMSULOSIN 0.4 MG CAP.SR.24H PO SCH (22:25)
[2021-02-01 06:47] LABS: CALCIUM, SERUM 8.5 mg/dL (8.5-10.1); CREATININE 1.3 mg/dL (0.6-1.3); POTASSIUM 3.7 mmol/L (3.5-5.1)
--- NOTE | 2021-02-01 07:34 | NUR ---
MS RN CLOSING NOTE REPORT GIVEN TO ANDRIY FOR CONTINUITY OF CARE.
--- NOTE | 2021-02-01 07:55 | NUR ---
RN OPENING NOTES PATIENT IS IN BED RESTING, AWAKE. A/O X3-4. NO S/S OF PAIN NOTED AT THIS TIME. ON ROOM AIR, NO DISTRESS OR SHORTNESS OF BREATH NOTED. IV RIGHT WRIST #20G, INTACT AND PATENT. FALL AND SAFETY MEASURES IN PLACE, BED ALARM ON, BED IN LOW AND LOCK POSITION, CALL LIGHT AND TABLE WITHIN EASY REACH, SIDE RAILS UP X2. WILL CONTINUE TO MONITOR.
[2021-02-01 08:31] VITALS: BP 110/67
[2021-02-01 09:00] VITALS: BP 110/67
[2021-02-01] MEDS: METOPROLOL TARTRATE 25 MG TABLET PO SCH (09:00)
[2021-02-01] MEDS: hydrALAZINE HCL 50 MG TABLET PO SCH (09:00)
[2021-02-01] MEDS: ASCORBIC ACID 500 MG TABLET PO SCH (09:04)
[2021-02-01] MEDS: FAMOTIDINE (20 MG) 20 MG TABLET PO SCH ×2 (09:04→09:12)
[2021-02-01] MEDS: ASPIRIN 81 MG TAB.CHEW PO SCH (09:05)
[2021-02-01] MEDS: GUAIFENESIN LA 600 MG TABLET.SA PO SCH ×3 (09:05→10:39)
[2021-02-01] MEDS: FINASTERIDE (5 MG) 5 MG TABLET PO SCH ×2 (09:05→09:13)
[2021-02-01] MEDS: LamoTRIgine 25 MG TABLET PO SCH ×3 (09:06→15:48)
[2021-02-01] MEDS: QUETIAPINE FUMARATE 25 MG TABLET PO SCH ×2 (09:06→09:13)
--- NOTE | 2021-02-01 09:17 | NUR ---
RN NOTES PATIENT REFUSED TO TAKE HIS MORNING MEDICATION, TRY TO ENCOURAGE PATIENT TO TAKE MEDICATIONS BUT PATIENT REFUSED, PATIENT ONLY TOOK ASPIRIN AND VITAMIN C.
[2021-02-01] MEDS ORDERED: ENOXAPARIN SODIUM 80 MG/0.8 ML DISP.SYRIN SQ SCH (12:00)
[2021-02-01] MEDS ORDERED: FINA5TAB3 PO (14:06)
[2021-02-01] MEDS ORDERED: DABI150C PO (14:06)
--- NOTE | 2021-02-01 15:53 | NUR ---
CUFF PRESSER NOTES PATIENT WAS DISCHARGE IN STABLE CONDITIONS. A/O X3-4. VITALS TAKEN AND STABLES, BP: 123/78, P: 60, T:97.5, O2: 96. NO IV ACCESS. PATIENT REFUSED SKIN ASSESSMENTS AND PICTURES. PATIENT REFUSED MOST OF HIS MEDS DURING THE DAY, FAMILY REQUESTED TO GIVE LAMOTRIGINE BEFORE LIVING THE UNIT, PATIENT TOOK THE LAMOTRIGINE. ALL BELONGINGS CHECKED AND SIGNED. HEALTH TEACHING AND DISCHARGE INSTRUCTIONS GIVEN TO PATIENT AND FAMILY, VERBALIZED UNDERSTANDING. PATIENT LEFT UNIT VIA GURNEY WITH NO SIGNS OF DISTRESS, ACCOMPANIED BY PARAMEDICS. PATIENT GOING TO AN ASSISTING LIVING, [facility] [place] [facility]. CHARGE NURSE AWARE OF DISCHARGED.
== END 2021-02-01 16:00 | DRG 189 ==
LOC: ER 16:35 → TELE1 20:09 → TELE-TD 20:19 → TELE1 01-25 16:21 → MEDSG1 01-27 11:20 → MED 01-27 11:55
PROVIDERS: ADMIT Nurse Practitioner Acute Care; ATTEND Hospitalist
DX: J96.01 Acute respiratory failure with hypoxia (principal); N17.0 Acute kidney failure with tubular necrosis; G92.8 Other toxic encephalopathy; D68.59 Other primary thrombophilia; D61.818 Other pancytopenia; J98.11 Atelectasis; I13.0 Hypertensive heart and chronic kidney disease with heart failure and stage 1 through stage 4 chronic kidney disease, or unspecified chronic kidney disease; I50.32 Chronic diastolic (congestive) heart failure; Z20.822 Contact with and (suspected) exposure to COVID-19; Z86.73 Personal history of transient ischemic attack (TIA), and cerebral infarction without residual deficits; G40.909 Epilepsy, unspecified, not intractable, without status epilepticus; D64.9 Anemia, unspecified; D69.6 Thrombocytopenia, unspecified; E78.5 Hyperlipidemia, unspecified; E87.6 Hypokalemia; Z86.718 Personal history of other venous thrombosis and embolism; Z79.01 Long term (current) use of anticoagulants; N28.1 Cyst of kidney, acquired; I08.0 Rheumatic disorders of both mitral and aortic valves; N40.1 Benign prostatic hyperplasia with lower urinary tract symptoms; R33.8 Other retention of urine; F09 Unspecified mental disorder due to known physiological condition; K46.9 Unspecified abdominal hernia without obstruction or gangrene; E11.22 Type 2 diabetes mellitus with diabetic chronic kidney disease; G30.9 Alzheimer's disease, unspecified; F02.80 Dementia in other diseases classified elsewhere, unspecified severity, without behavioral disturbance, psychotic disturbance, mood disturbance, and anxiety; K80.20 Calculus of gallbladder without cholecystitis without obstruction; N18.2 Chronic kidney disease, stage 2 (mild)
CPT/HCPCS: 36415; 71045-TC; 71250-TC; 76705-TC; 76770-TC; 76856-TC; 78582; 80048-TC; 80053-TC; 80061-TC; 80076-TC; 82728-TC; 82784; 82962-TC; 83540-TC; 83605-TC; 83735-TC; 84100-TC; 84153-TC; 84155; 84165; 84443-TC; 84484-TC; 85025-TC; 85730-TC; 86140-TC; 86225; 86235; 86334; 86431-TC; 86706; 86803; 87040-TC; 87081-TC; 87086-TC; 87340; 93307-TC; 93970-TC; 97116-TC; 97530-TC; A9540; A9567; C9803; G0378; J0696; J1650; J1815; J1940; J2405; J2920; J2930; J3370; J7030; J7050; J7060; U0003